=== PATIENT | female | born 1945 | race African-American/Black ===

== ENCOUNTER → 2017-12-17 | Day surgery (SDC) | payer OTHER ==
[~2017-12-17] MED LIST: ALBU2.5V14 NEB; CELE200C PO; CHOL10003 PO; ESOM40CA PO; FLUT1DIS IH; HYDR25TA9 PO; LIDOCAINE 2% PF Vial for OR 5 ML VIAL. ONE; LOSA25TA4 PO; METF10003 PO; METO-239 PO; PROPOFOL 40 ML IV ONE
== END ==
LOC: SURG 09:49
PROVIDERS: ATTEND Internal Medicine Gastroenterology
DX: Z09 Encounter for follow-up examination after completed treatment for conditions other than malignant neoplasm (principal); K57.30 Diverticulosis of large intestine without perforation or abscess without bleeding; E11.9 Type 2 diabetes mellitus without complications; I10 Essential (primary) hypertension; Z86.010 Personal history of colon polyps
CPT/HCPCS: 45378; 82947; J2704; J2001